=== PATIENT | male | born 1950 | race Two or more races ===

== ENCOUNTER 2017-09-27 15:21 | Emergency (ER) | payer MEDICARE, OTHER ==
[2017-09-27] MEDS ORDERED: Ertapenem 1 GM in Sodium Chloride 0.9% 100 ML IV ONE (15:30)
[2017-09-27] MEDS ORDERED: Sodium Chloride 0.9% 1,000 ML IV SCH (15:45)
[2017-09-27] MEDS ORDERED: HYDROmorphone 0.5 MG/0.5 ML SYRINGE IVPUSH ONE (16:15)
--- NOTE | 2017-09-28 08:04 | CONS ---
CONSULTING PHYSICIAN: Latricia Love MD DATE OF CONSULTATION: 09/27/2017 SURGICAL EVALUATION CHIEF COMPLAINT: Perforated appendicitis. HISTORY OF PRESENT ILLNESS: Ernie Humphrey is a 67-year-old male who had some vague abdominal pain about a week ago that seemed to improve until yesterday when he started having more pain with vomiting. He has also had shaking chills as well as some diarrhea. He said it was evaluated at the [facility] walk-in and a CT scan demonstrated that he actually has a perforated appendicitis with localized free air. There was a fair amount of inflammation around the whole area. There is no evidence of abscess formation. He was subsequently transferred over here. The patient himself states that he does feel chilled, but has a significant past medical history. He said he has had coronary artery disease for which he has a stent in his LAD and is currently on Plavix. He has denied any recent chest pain or palpitations. Of note, the patient has also had bilateral hip replacement done approximately 4 years ago. ALLERGIES: None. CURRENT MEDICATIONS: 1. Metformin. 2. Lisinopril. 3. Plavix. 4. Lopressor. 5. Cozaar. PAST SURGICAL HISTORY: As I discussed above. FAMILY HISTORY: He is . He has 2 children alive and well. He is currently here as a "kelechi." He is from [place] and has only been here for the competition. REVIEW OF SYSTEMS: He denies seizures. No blurred or double vision. He denies thyroid or hepatitis. He denies any shortness of breath or chest pain. Abdomen: See HPI. There has been diarrhea, but not bloody. No hematuria. He denies ankle swelling or edema. PHYSICAL EXAMINATION: VITAL SIGNS: This is an ill-appearing male. His temperature now has climbed over 101. His heart rate is not tachycardic. GENERAL: He is alert, but a bit diaphoretic. LUNGS: Clear. HEART: Rhythm regular. ABDOMEN: He is very tender in the right lower quadrant with some guarding. EXTREMITIES: His ankles are free of edema. DIAGNOSTIC DATA: He had a WBC at the [facility], which did demonstrate that it was elevated at 13,800. His electrolytes were a slight decrease in his sodium of 134 with a glucose of 173. His UA did demonstrate a specific gravity of 1.03. CT scan has been reviewed and clearly is impressive about a significant amount of inflammation. There is multiple areas of free air in and around the markedly dilated inflamed appendix. IMPRESSION AND PLAN: 1. This is indeed a ruptured appendicitis in a man who has significant comorbid factors especially because of the fact of his coronary artery disease and he does have a stent. I clearly explained to the patient that he needs IV antibiotics, hydration, serial exams, and possibly even an appendectomy versus percutaneous drainage depending on how his course goes. I feel that because we are unable to do all the elements to care for this patient, I feel that we should go ahead and transfer him here early in his care versus delay anything. I have already spoken with Dr. Olvera who is the surgeon on-call at [facility] and he has graciously accepted this patient in transfer. In order to expedite that, like I said we are getting in the Invanz, we are getting the hydration, and get him on his way. The family is very pleased with this and actually are very comfortable with that because they are concerned of the fact that he has had previous coronary artery disease in the past. 2. The other issue is on his CT scan, which needs to be addressed. There is an 8 mm nodule on the right lobe of the liver, which also needs to be followed up and this will be highlighted here of my history and physical. 3. History of coronary artery disease, status post stents in the LAD, currently on Plavix. 4. Bilateral hip replacements. 5. Diabetes. 6. Hypertension. Thank you very much. NILA /[id number]
== END 2017-09-27 16:37 ==
LOC: JD.ED 15:21
DX: K37 Unspecified appendicitis (principal); E11.9 Type 2 diabetes mellitus without complications; I10 Essential (primary) hypertension; I25.10 Atherosclerotic heart disease of native coronary artery without angina pectoris; Z95.5 Presence of coronary angioplasty implant and graft; Z96.643 Presence of artificial hip joint, bilateral; Z79.82 Long term (current) use of aspirin; Z79.84 Long term (current) use of oral hypoglycemic drugs; Z79.01 Long term (current) use of anticoagulants
CPT/HCPCS: 82962; 96365; 96375; 99285; J1170; J1335; J7030; J7040